=== PATIENT | female | born 1955 | race Caucasian/White ===

== ENCOUNTER 2019-02-04 21:31 | Emergency (ER) | payer OTHER ==
[~2019-02-04] VITALS: Ht 157.5 cm; Wt 99.3 kg
[~2019-02-04 21:31] MED LIST: ACET500 PO; ALBU90OI61 INH; ASPI325 PO; AZAT50 PO; Aspir-Trin325 MG PO; CALCAVITD PO; CHOL10002 PO; DULERA 100 MCG/13 GM INH; DULERA 200 MCG/13 GM INH; FENO160 PO; HYDSUL200 PO; METO50 PO; MULVITMIND PO; PRED10 PO; PRED5 PO; PRO AIR INH; Polytrim Eye Dr10 ML BOTHEYES; SERT25 PO
[2019-02-04 22:51] LABS: Influenza A Positive (NEGATIVE); Influenza B Negative (NEGATIVE)
[2019-02-04] MEDS ORDERED: TIOT18 INH (22:59)
[2019-02-04] MEDS ORDERED: LOMAIRA8 MG PO (22:59)
[2019-02-04 23:15] LABS: Calcium, Ionized (POC) 1.16 mmol/L (1.10-1.46); Chloride (POC) 102 mmol/L (98-108); Creatinine (POC) 0.7 mg/dL (0.6-1.0); Glucose (ISTAT POC) 90 mg/dL (70-99); Hemoglobin (POC) 12.9 g/dL (12.0-16.0); Sodium (POC) 139 mmol/L (135-148); Total CO2 (POC) 25 mmol/L (21-32)
[2019-02-04] MEDS ORDERED: Tamiflu75 MG PO (23:28)
== END 2019-02-04 23:45 | disposition home or self-care (01) ==
LOC: ER 21:31
PROVIDERS: Emergency Medicine; Physician Assistant
DX: J10.1 Influenza due to other identified influenza virus with other respiratory manifestations (principal); I25.2 Old myocardial infarction; M32.9 Systemic lupus erythematosus, unspecified; Z79.899 Other long term (current) drug therapy
CPT/HCPCS: 36415; 80047; 85014; 87804; 99283

== ENCOUNTER 2019-07-18 17:04 | Inpatient (IN) | payer OTHER ==
[~2019-07-18] VITALS: Ht 157.5 cm; Wt 96.6 kg
[~2019-07-18 17:04] MED LIST changes: -CALCAVITD PO; +CALCIUM 600 +1 EA11 PO; -CHOL10002 PO; +LOMAIRA8 MG PO; +METO50ER PO; +MULTI-DAY PLUS1 EAC1 PO; -MULVITMIND PO; +TIOT18 INH; +Tamiflu75 MG PO; +VITAMIN D35000 UNIT PO
[2019-07-18 17:38] LABS: BASOPHILS ABSOLUTE AUTO 0.03 K/mm3 (0.00-0.23); BASOPHILS PERCENT AUTO 0 % (0-2); EOSINOPHILS ABSOLUTE AUTO 0.16 K/mm3 (0.00-0.68); EOSINOPHILS PERCENT AUTO 1 % (0-6); Hematocrit 40.3 % (33.0-51.0); Hemoglobin 12.7 g/dL (11.5-16.0); IMMATURE GRAN ABSOLUTE AUTO 0.04 K/mm3 (0.00-0.10); IMMATURE GRAN PERCENT AUTO 0 % (0-1); LYMPHOCYTES ABSOLUTE AUTO 0.91 K/mm3 (0.84-5.20); LYMPHOCYTES PERCENT AUTO 8 % (21-46); MONOCYTES ABSOLUTE AUTO 0.95 K/mm3 (0.16-1.47); MONOCYTES PERCENT AUTO 8 % (4-13); Mean Corpuscular HGB 28.6 pg (26.0-34.0); Mean Corpuscular HGB Conc 31.5 g/dL (31.5-36.5); Mean Corpuscular Volume 91 fL (80-100); Mean Platelet Volume 9.5 fL (9.1-12.4); NEUTROPHILS ABSOLUTE AUTO 9.76 K/mm3 (1.96-9.15); NEUTROPHILS PERCENT AUTO 82 % (41-73); Platelet Count 333 K/mm3 (150-400); RDW Coefficient Variation 13.3 % (11.7-14.2); RDW Standard Deviation 44.7 fL (35.1-46.3); Red Blood Cell Count 4.44 M/mm3 (3.80-5.20); White Blood Cell Count 11.85 K/mm3 (4.00-11.30)
[2019-07-18 17:49] LABS: Alanine Aminotransfer (ALT/SGP 22 U/L (12-78); Albumin, Blood 3.6 g/dL (3.4-5.0); Alk Phos 50 U/L (50-136); Anion Gap 8 mmol/L (6-16); Aspartate Aminotrans (AST/SGOT 29 U/L (12-37); Bilirubin, Total 0.4 mg/dL (0.1-1.0); Blood Urea Nitrogen 23 mg/dL (8-24); Bun/Creatinine Ratio 37.1 (12.0-20.0); CO2, Blood 23 mmol/L (21-32); Calcium, Blood 8.7 mg/dL (8.5-10.1); Chloride, Blood 107 mmol/L (98-108); Creatinine, Blood 0.62 mg/dL (0.40-1.00); Globulin, Blood 3.7 g/dL (2.2-4.0); Glomerular Filtration Rate >60 (60-); Glucose, Blood 85 mg/dL (70-99); Potassium, Blood 3.7 mmol/L (3.5-5.5); Sodium, Blood 138 mmol/L (136-145); Total Protein, Blood 7.3 g/dL (6.4-8.2)
[2019-07-18] MEDS ORDERED: ALEN70 PO (18:04)
[2019-07-18] MEDS ORDERED: Xopenex Hfa15 GM INH (18:09)
[2019-07-18] MEDS ORDERED: Flonase 0.05% N16 GM (18:10)
[2019-07-18 18:20] LABS: Influenza A Negative (NEGATIVE); Influenza B Negative (NEGATIVE)
[2019-07-18 19:04] LABS: Source, Urine Catheter
[2019-07-18 19:08] LABS: Bilirubin, Urine Neg (Neg); Blood, Urine 3+ (Neg); Glucose Qualitative, Urine Neg (Neg); Ketones, Urine Neg (Neg); Leukocyte Esterase, Urine 3+ (Neg); Nitrite, Urine Pos (Neg); Protein, Urine Neg (Neg); Urobilinogen, Urine NORM (Normal)
[2019-07-18 19:33] LABS: Appearance, Urine Hazy (Clear); Color, Urine Yellow (P-Yellow)
[2019-07-18 19:34] LABS: White Blood Cells, Urine 50-100 /hpf (0-5)
[2019-07-18 19:35] LABS: Bacteria Mod /hpf; Red Blood Cells, Urine 0-2 /hpf (0-2); Squamous Epithelial Cells Few /hpf (Few)
[2019-07-18] MEDS ORDERED: EPIPEN 2-P0.3 MG/0.3 IM (19:44)
[2019-07-18] MEDS ORDERED: Voltaren100 GM TOP (19:45)
[2019-07-18] MEDS ORDERED: ACET325 PO (19:47)
[2019-07-18] MEDS ORDERED: SPIRIVA RESPIMAT4 G1 INH (19:48)
[2019-07-18] MEDS ORDERED: SPIRIVA RESPIMAT4 GM INH (19:48)
[2019-07-19 03:38] LABS: BASOPHILS ABSOLUTE AUTO 0.02 K/mm3 (0.00-0.23); BASOPHILS PERCENT AUTO 0 % (0-2); EOSINOPHILS ABSOLUTE AUTO 0.05 K/mm3 (0.00-0.68); EOSINOPHILS PERCENT AUTO 1 % (0-6); Hematocrit 37.1 % (33.0-51.0); Hemoglobin 11.8 g/dL (11.5-16.0); IMMATURE GRAN ABSOLUTE AUTO 0.05 K/mm3 (0.00-0.10); IMMATURE GRAN PERCENT AUTO 1 % (0-1); LYMPHOCYTES ABSOLUTE AUTO 0.51 K/mm3 (0.84-5.20); LYMPHOCYTES PERCENT AUTO 6 % (21-46); MONOCYTES ABSOLUTE AUTO 0.54 K/mm3 (0.16-1.47); MONOCYTES PERCENT AUTO 6 % (4-13); Mean Corpuscular HGB 28.6 pg (26.0-34.0); Mean Corpuscular HGB Conc 31.8 g/dL (31.5-36.5); Mean Corpuscular Volume 90 fL (80-100); Mean Platelet Volume 9.5 fL (9.1-12.4); NEUTROPHILS ABSOLUTE AUTO 7.61 K/mm3 (1.96-9.15); NEUTROPHILS PERCENT AUTO 87 % (41-73); Platelet Count 292 K/mm3 (150-400); RDW Coefficient Variation 13.4 % (11.7-14.2); RDW Standard Deviation 44.5 fL (35.1-46.3); Red Blood Cell Count 4.13 M/mm3 (3.80-5.20); White Blood Cell Count 8.78 K/mm3 (4.00-11.30)
[2019-07-19 03:58] LABS: Anion Gap 7 mmol/L (6-16); Blood Urea Nitrogen 17 mg/dL (8-24); Bun/Creatinine Ratio 28.1 (12.0-20.0); CO2, Blood 25 mmol/L (21-32); Calcium, Blood 8.6 mg/dL (8.5-10.1); Chloride, Blood 107 mmol/L (98-108); Glomerular Filtration Rate >60 (60-); Glucose, Blood 89 mg/dL (70-99); Potassium, Blood 3.7 mmol/L (3.5-5.5); Sodium, Blood 139 mmol/L (136-145)
--- NOTE | 2019-07-19 04:46 | NUR ---
SHIFT SUMMARY PT DEVELOPED A FEVER AFTER ARRIVING. PT WAS TX WITH APAP PER EMAR. COOLING MEASURES SUCH ICE PACKS AND BLANKET REMOVAL WAS DONE. PT TEMP IS COMING DOWN AND WILL CONTINUE TO MONITOR, PT DID HAVE EPISODE OF N/V WHEN FEVER SPIKED. ZOFRAN WAS GIVEN WITH GOOD RESULT. PT UNABLE TO TOLERATE OUR CPAP, NC @ 2LPM WAS PLACED. PT WILL HAVE HOME CPAP BROUGHT IN. PT CURRENTLY SLEEPING AND BREATHING EASY. CALL LIGHT IN REACH.
--- NOTE | 2019-07-19 18:40 | NUR ---
SUMMARY NO ACUTE CHANGES T/O SHIFT. PT FEBRILE T/O SHIFT. MEDICATED PER ORDERS W/TYLENOL. PT VOIDING WELL. LOST IV SITE. UNABLE TO OBTAIN NEW SITE, MULTIPLE ATTEMPTS MADE FOR POWER GLIDE AND PERIPHERAL SITE UNSUCCESSFULLY. CALL OUT TO ED FOR EJ. ANTIBIOTIC CHANGED TO PO FOR TONIGHT'S DOSE PER DR SANTOS'S TELEPHONE ORDER SO PT DOES NOT MISS DOSE. PT SBA TO RESTROOM. USES FWW. PLEASANT AND COOPERATIVE.
--- NOTE | 2019-07-19 21:10 | NUR ---
UPDATE PATIENT CURRENTLY CONTINUES TO HAVE NO SUCCESSFUL IV ACCESS OBTAINED. DAY SHIFT HOSPITALIST AWARE PER DAY RN REPORT.
[2019-07-20 03:39] LABS: BASOPHILS ABSOLUTE AUTO 0.02 K/mm3 (0.00-0.23); BASOPHILS PERCENT AUTO 0 % (0-2); EOSINOPHILS ABSOLUTE AUTO 0.02 K/mm3 (0.00-0.68); EOSINOPHILS PERCENT AUTO 0 % (0-6); Hematocrit 38.7 % (33.0-51.0); Hemoglobin 12.2 g/dL (11.5-16.0); IMMATURE GRAN ABSOLUTE AUTO 0.07 K/mm3 (0.00-0.10); IMMATURE GRAN PERCENT AUTO 1 % (0-1); LYMPHOCYTES ABSOLUTE AUTO 0.48 K/mm3 (0.84-5.20); LYMPHOCYTES PERCENT AUTO 7 % (21-46); MONOCYTES ABSOLUTE AUTO 0.56 K/mm3 (0.16-1.47); MONOCYTES PERCENT AUTO 9 % (4-13); Mean Corpuscular HGB 28.4 pg (26.0-34.0); Mean Corpuscular HGB Conc 31.5 g/dL (31.5-36.5); Mean Corpuscular Volume 90 fL (80-100); Mean Platelet Volume 9.4 fL (9.1-12.4); NEUTROPHILS PERCENT AUTO 82 % (41-73); Platelet Count 268 K/mm3 (150-400); RDW Coefficient Variation 13.4 % (11.7-14.2); RDW Standard Deviation 44.1 fL (35.1-46.3); White Blood Cell Count 6.45 K/mm3 (4.00-11.30)
[2019-07-20 03:59] LABS: Albumin, Blood 2.9 g/dL (3.4-5.0); Anion Gap 8 mmol/L (6-16); Blood Urea Nitrogen 12 mg/dL (8-24); Bun/Creatinine Ratio 22.1 (12.0-20.0); CO2, Blood 25 mmol/L (21-32); Calcium, Blood 8.7 mg/dL (8.5-10.1); Chloride, Blood 107 mmol/L (98-108); Creatinine, Blood 0.54 mg/dL (0.40-1.00); Glomerular Filtration Rate >60 (60-); Glucose, Blood 96 mg/dL (70-99); Phosphorus, Blood 2.4 mg/dL (2.5-4.9); Potassium, Blood 3.9 mmol/L (3.5-5.5); Sodium, Blood 140 mmol/L (136-145)
--- NOTE | 2019-07-20 07:34 | NUR ---
SHIFT SUMMARY PATIENT PLEASENT AND COOPERATIVE THROUGHOUT THE NIGHT. PATIENT TOOK A WALK BEFORE GOING TO BED. PATIENT CONTINUES TO HAVE NO IV ACCESS, ER WAS NEVER ABLE TO COME ATTEMPT IV ACCESS LAST NIGHT. PATIENT ON 2L O2 VIA N/C. PATIENT USED HER CPAP WHILE ASLEEP, CONTINUOUS BIOX IN PLACE. PATIENT APPEARED TO SLEEP WELL FOR SEVERAL HOURS LAST NIGHT. VITAL SIGNS CHARTED. REPORT GIVEN TO ONCOMING RN.
--- NOTE | 2019-07-20 08:05 | NUR ---
pt laying in bed awake a/ox3, pleasant and cooperative with care, follows commands well, reports kidney pain to right flank, states it woke her up this am, other than that she has her chronic discomfort of knees, slept well, denies sob, lungs are clear a bit dim in bases, resp even and unlabored, reports a nonproductive occ cough, is currently on r/a, hrr, tele in place running sr per montior, see strip, no edema noted, ppp+2, cap refill <3sec, vs stable, afebrile, no iv site, btx4, abd flat soft tender to right upper quad, reports voids and bm wnl, skin c/w/d, some scattered bruising, maew, santos, call light in reach.
--- NOTE | 2019-07-20 13:30 | NUR ---
pt up in room, no complaints or needs. no acute changes, states she feels pretty good. call light in reach.
--- NOTE | 2019-07-20 19:27 | NUR ---
pt had an uneventful day. no acute changes, call light in reach.
--- NOTE | 2019-07-20 19:39 | NUR ---
TAKEN REPORT FROM LELIA ROWELL RN WHO REPORTED THAT PATIENT HAD NO IV AND WAS OK'D BY DOCTOR. NOTED IN NURSING NOTES THAT THE DOCTOR IS AWARE. PATIENT STABLE AND INDEPENDENT IN ROOM. SHE ISS NOT WANTING TO BE POKED YET AGAIN.
--- NOTE | 2019-07-21 04:00 | NUR ---
PATIENT UP FOR A WALK WITH STEAM OVEN OPERATOR. PATIENT ON 2L OF OXYGEN TO WALK AROUND THE UNIT. PATIENT WALKING INDEPENDENTLY. STEAM OVEN OPERATOR ASSISTING WITH OXYGEN TANK ONLY.
[2019-07-21 04:04] LABS: BASOPHILS ABSOLUTE AUTO 0.02 K/mm3 (0.00-0.23); BASOPHILS PERCENT AUTO 0 % (0-2); EOSINOPHILS PERCENT AUTO 4 % (0-6); Hematocrit 37.7 % (33.0-51.0); IMMATURE GRAN ABSOLUTE AUTO 0.06 K/mm3 (0.00-0.10); IMMATURE GRAN PERCENT AUTO 1 % (0-1); LYMPHOCYTES ABSOLUTE AUTO 1.46 K/mm3 (0.84-5.20); LYMPHOCYTES PERCENT AUTO 29 % (21-46); MONOCYTES ABSOLUTE AUTO 0.78 K/mm3 (0.16-1.47); MONOCYTES PERCENT AUTO 16 % (4-13); Mean Corpuscular HGB 27.8 pg (26.0-34.0); Mean Corpuscular HGB Conc 31.8 g/dL (31.5-36.5); Mean Platelet Volume 9.4 fL (9.1-12.4); NEUTROPHILS ABSOLUTE AUTO 2.49 K/mm3 (1.96-9.15); NEUTROPHILS PERCENT AUTO 50 % (41-73); Platelet Count 293 K/mm3 (150-400); RDW Coefficient Variation 13.2 % (11.7-14.2); RDW Standard Deviation 42.5 fL (35.1-46.3); Red Blood Cell Count 4.32 M/mm3 (3.80-5.20); White Blood Cell Count 5.01 K/mm3 (4.00-11.30)
[2019-07-21 04:07] LABS: Mean Corpuscular Volume 87 fL (80-100)
[2019-07-21 04:25] LABS: Albumin, Blood 2.9 g/dL (3.4-5.0); Anion Gap 6 mmol/L (6-16); Blood Urea Nitrogen 19 mg/dL (8-24); Bun/Creatinine Ratio 31.6 (12.0-20.0); CO2, Blood 28 mmol/L (21-32); Calcium, Blood 8.7 mg/dL (8.5-10.1); Chloride, Blood 106 mmol/L (98-108); Glomerular Filtration Rate >60 (60-); Glucose, Blood 98 mg/dL (70-99); Phosphorus, Blood 3.4 mg/dL (2.5-4.9); Potassium, Blood 3.8 mmol/L (3.5-5.5); Sodium, Blood 140 mmol/L (136-145)
--- NOTE | 2019-07-21 05:35 | NUR ---
PATIENT HAS BEEN COMPLETELY INDEPENDENT IN HER ROOM TONIGHT. PATIENT CALLS APPROPRIATLEY. PATIENT ABLE TO GO TO THE BATHROOM WITHOUT OXYGEN BUT NEEDS OXYGEN FOR ACTIVITY. PATIENT SLEPT WITH HOME CPAP. PATIENT DENIES ANY PAIN OR NEEDS THROUGH THE NIGHT. PATIENT DID USE PRN INHALER BEFORE WALKING, STATING THIS IS HER NORMAL PRACTICE AT HOME.
--- NOTE | 2019-07-21 07:45 | NUR ---
RECEIVED REPORT FROM BENTON CERVANTES, ASSUMED CARE, PATIENT IS SITTING AT SIDE OF BED WATCHING TV, AWAKE, ALERT AND ORIENTED, ASKED TO BE CALLED "PORTER", PLEASANT AND COOPERATIVE, INDEPENDENT IN ROOM, ABLE TO USE BATHROOM INDEPENDENTLY, LUNG SOUNDS CLEAR BUT DIMINISHED, BOWEL TONES PRESENT, PATIENT VOIDS IN TOILET, ABLE TO AMBULATE WITHOUT ASSISTANCE, PEDAL PULSES PRESENT, CALL LIGHT IN REACH, WILL CONTINUE TO MONITOR.
--- NOTE | 2019-07-21 09:00 | NUR ---
PATIENT SITTING AT SIDE OF BED EATING BREAKFAST, SWALLOWED ALL PO MEDICATIONS THIS AM WITHOUT ANY PROBLEM, CALL LIGHT IN REACH, WILL CONTINUE TO MONITOR.
--- NOTE | 2019-07-21 12:33 | NUR ---
DR. GALICIA IN TO SEE PATIENT, NEW ORDERS RECEIVED.
[2019-07-21] MEDS ORDERED: LEVO750 PO (14:51)
--- NOTE | 2019-07-21 15:31 | NUR ---
PATIENT DISCHARGED TO HOME ORDERED, THREE STITCHES ON RIGHT UPPER CHEST REMOVED PER DR. GALICIA, PATIENT TOLERATED WELL, DISCHARGE PAPERWORK VERBAL AND WRITTEN GIVEN AND EXPLAINED, PATIENT VERBALIZED UNDERSTANDING, NEW PRESCRIPTIONS HAVE BEEN CALLED TO [facility] IN [place], PATIENT WAS ESCORTED TO ER ENTRANCE VIA WHEELCHAIR WHERE HER FRIEND WAITED TO PROVIDE A RIDE HOME, PATIENT LEFT WITH ALL MEDICATIONS AND PERSONAL BELONGINGS.
== END 2019-07-21 15:38 | disposition home or self-care (01) | DRG 872 ==
LOC: ER 17:04 → PCU 20:32
PROVIDERS: Emergency Medicine; Internal Medicine; Nurse Practitioner Acute Care; ADMIT Family Medicine
DX: A41.51 Sepsis due to Escherichia coli [E. coli] (principal); N39.0 Urinary tract infection, site not specified; M33.20 Polymyositis, organ involvement unspecified; J96.11 Chronic respiratory failure with hypoxia; M32.9 Systemic lupus erythematosus, unspecified; E83.39 Other disorders of phosphorus metabolism; I25.10 Atherosclerotic heart disease of native coronary artery without angina pectoris; G47.33 Obstructive sleep apnea (adult) (pediatric); J84.10 Pulmonary fibrosis, unspecified; Z99.81 Dependence on supplemental oxygen; E78.5 Hyperlipidemia, unspecified; M79.7 Fibromyalgia; M06.9 Rheumatoid arthritis, unspecified; Z88.8 Allergy status to other drugs, medicaments and biological substances; Z79.52 Long term (current) use of systemic steroids; Z79.899 Other long term (current) drug therapy; I25.2 Old myocardial infarction
CPT/HCPCS: 36415; 71046; 80048; 80053; 80069; 81001; 83605; 85025; 87040; 87077; 87086; 87186; 87804; 93005; 93010; 94640; 94660; 94762; 96361; 96365; 96366; 96375; 99285-25; A9270; J1650; J1956; J2405; J2543; J3480; J7030; J7500; J7512

== ENCOUNTER 2020-10-16 09:04 | Day surgery (SDC) | payer OTHER ==
[~2020-10-16] VITALS: Ht 157.5 cm; Wt 95.8 kg
[~2020-10-16 09:04] MED LIST changes: +ACET325 PO; +ALEN70 PO; +CALCIUM CIT 311 EACH PO; +CLARITIN10 M1 PO; +DULERA 200 MCG-13 GM INH; +EPIPEN 2-P0.3 MG/0.1 IM; +EPIPEN 2-P0.3 MG/0.3 IM; +FLUT.05NI; +FOLI1 PO; +Flonase 0.05% N16 GM; +LEVALBUTEROL TA15 G1 INH; +LEVO750 PO; +METO25 PO; +METTREX2.5 PO; +Multiple Vitam1 EAC1 PO; +SPIRIVA RESPIMAT4 G1 INH; +SPIRIVA RESPIMAT4 G3 INH; +SPIRIVA RESPIMAT4 GM INH; +VITAMIN D5000 UNIT PO; +VOLTAREN ARTHRI20 GM TOP; +Voltaren100 GM TOP; +Xopenex Hfa15 GM INH
== END 2020-10-16 11:05 | disposition home or self-care (01) ==
LOC: ORSCSDS 09:04
PROVIDERS: Student in an Organized Health Care Education/Training Program
PROC: 0DBN8ZX Excision of Sigmoid Colon, Via Natural or Artificial Opening Endoscopic, Diagnostic (ICD-10-PCS; principal; 2020-10-16 10:30)
PROC: 0DBK8ZX Excision of Ascending Colon, Via Natural or Artificial Opening Endoscopic, Diagnostic (ICD-10-PCS; principal; 2020-10-16 10:30)
DX: Z12.11 Encounter for screening for malignant neoplasm of colon (principal); D12.2 Benign neoplasm of ascending colon; D12.5 Benign neoplasm of sigmoid colon; K64.8 Other hemorrhoids; K57.30 Diverticulosis of large intestine without perforation or abscess without bleeding; I10 Essential (primary) hypertension; I25.2 Old myocardial infarction; J45.909 Unspecified asthma, uncomplicated; G47.33 Obstructive sleep apnea (adult) (pediatric); E66.01 Morbid (severe) obesity due to excess calories; Z68.38 Body mass index [BMI] 38.0-38.9, adult; Z79.899 Other long term (current) drug therapy; Z99.81 Dependence on supplemental oxygen
CPT/HCPCS: 88305; J2704; J7120

== ENCOUNTER 2021-10-23 07:50 | Day surgery (SDC) | payer OTHER ==
[~2021-10-23] VITALS: Ht 160 cm; Wt 99.9 kg
[2021-10-23] MEDS ORDERED: ASPI81CH (08:41)
== END 2021-10-23 10:30 | disposition home or self-care (01) ==
LOC: ORSCSDS 07:50
PROVIDERS: Student in an Organized Health Care Education/Training Program
PROC: 0DBM8ZX Excision of Descending Colon, Via Natural or Artificial Opening Endoscopic, Diagnostic (ICD-10-PCS; principal; 2021-10-23 09:30)
PROC: 0DBN8ZX Excision of Sigmoid Colon, Via Natural or Artificial Opening Endoscopic, Diagnostic (ICD-10-PCS; principal; 2021-10-23 09:30)
PROC: 0DBK8ZX Excision of Ascending Colon, Via Natural or Artificial Opening Endoscopic, Diagnostic (ICD-10-PCS; principal; 2021-10-23 09:30)
PROC: 0DBL8ZX Excision of Transverse Colon, Via Natural or Artificial Opening Endoscopic, Diagnostic (ICD-10-PCS; principal; 2021-10-23 09:30)
DX: Z86.010 Personal history of colon polyps (principal); D12.2 Benign neoplasm of ascending colon; D12.3 Benign neoplasm of transverse colon; D12.4 Benign neoplasm of descending colon; D12.5 Benign neoplasm of sigmoid colon; K57.30 Diverticulosis of large intestine without perforation or abscess without bleeding; K64.8 Other hemorrhoids; K64.4 Residual hemorrhoidal skin tags; I10 Essential (primary) hypertension; I25.10 Atherosclerotic heart disease of native coronary artery without angina pectoris; J45.909 Unspecified asthma, uncomplicated; E78.5 Hyperlipidemia, unspecified; Z79.899 Other long term (current) drug therapy; E66.01 Morbid (severe) obesity due to excess calories; Z68.39 Body mass index [BMI] 39.0-39.9, adult
CPT/HCPCS: 88305; J2704; J7120

== ENCOUNTER → 2021-11-26 | Outpatient (CLI) | payer OTHER ==
[~2021-11-26] MED LIST changes: +ASPI81CH
== END | disposition home or self-care (01) ==
LOC: LAB SHORT 14:50
DX: L92.8 Other granulomatous disorders of the skin and subcutaneous tissue (principal)
CPT/HCPCS: 88305; 88313

== ENCOUNTER 2023-02-20 07:35 | Emergency (ER) | payer OTHER ==
[~2023-02-20] VITALS: Ht 160 cm; Wt 98.4 kg
[2023-02-20] MEDS ORDERED: Norco 5-325 Ta1 EACH PO (09:08)
== END 2023-02-20 10:13 | disposition home or self-care (01) ==
LOC: ER 07:35
DX: S42.212A Unspecified displaced fracture of surgical neck of left humerus, initial encounter for closed fracture (principal); S42.292A Other displaced fracture of upper end of left humerus, initial encounter for closed fracture; W01.0XXA Fall on same level from slipping, tripping and stumbling without subsequent striking against object, initial encounter; Z88.1 Allergy status to other antibiotic agents; Z88.8 Allergy status to other drugs, medicaments and biological substances; Z79.899 Other long term (current) drug therapy; Z79.82 Long term (current) use of aspirin
CPT/HCPCS: 73030; 73070; 73200; A9270

== ENCOUNTER 2023-02-28 10:32 | Day surgery (SDC) | payer OTHER ==
[2023-02-28] VITALS (15 sets, daily range): BP systolic 97–150; BP diastolic 56–107
[~2023-02-28] VITALS: Ht 157.5 cm; Wt 98.5 kg
[~2023-02-28 10:32] MED LIST changes: -ASPI81CH; +ASPI81CH PO; +BUDESONIDE0.5 MG/2 M NEB; -DULERA 200 MCG-13 GM INH; +DULERA 200 MCG-13 GM NEB; +FORMOTEROL20 MCG/2 M NEB; +GLYC2 NEB; +NIACIN 500 MG500 MG PO; +Norco 5-325 Ta1 EACH PO; +PREMARIN VAG VAG; +RED YEAST RICE PO; -SPIRIVA RESPIMAT4 G3 INH; +SPIRIVA RESPIMAT4 G3 NEB; +VITAMIN K2 PO
[2023-02-28] MEDS ORDERED: EZET10 PO (11:38)
--- NOTE | 2023-02-28 11:40 | NUR ---
MEDICATIONS AND ALLERGIES REVIEWED WITH PT. ALLERGIES REVEIWED WITH DR CONNELLY. OKAY TO GIVE ANCEF PER DR CONNELLY.
--- NOTE | 2023-02-28 11:50 | NUR ---
History, Chart, Medications and Allergies reviewed before start of procedure. Lungs clear T/O to Auscultation. Patient confirms NPO status and agrees with scheduled surgery. Pre-Op teaching done. Pt verbalizes understanding. PT BELONGINGS PLACED UNDERNEATH GURNEY FOR SAFEKEEPING. PT GLASSES TAKEN TO PACU FOR SAFEKEEPING.
--- NOTE | 2023-02-28 18:43 | NUR ---
PT ARRIVED TO UNIT AT APROX 1630 FROM PACU. PT WITH AQUACEL DRESSING L SHOULDER, SLING IN PLACE. PT HAD NERVE BLOCK SO HAS NO SENSATION OR GROSS MOTOR MVT IN LUE. PT DENIES PAIN. TOLERATING REGULAR DIET. HOME INHALER VERIFIED BY PHARMACY AND LOCKED IN DRAWER.
[2023-03-01 02:27] VITALS: BP 115/64
[2023-03-01 07:11] VITALS: BP 109/57
--- NOTE | 2023-03-01 07:59 | NUR ---
THERAPY: PT IN ROOM TO WORK WITH PATIENT. PATIENT DENIES PAIN. WILL DO FULL ASSESSMENT WHEN THERAPY IS DONE WORKING WITH PATIENT.
--- NOTE | 2023-03-01 08:17 | NUR ---
SUMMARY PT WITH EFFECTIVE BLOCK.CIRC CHECKS INTACT.DRESSING D/I
--- NOTE | 2023-03-01 14:25 | NUR ---
DISCHARGE: PT DC TO HOME WITH FRIEND. IV DC'D WNL. PT VERBALIZED UNDERSTANDING OF INSTRUCTIONS, FOLLOW UP, MEDICATIONS AND PROBLEMS TO REPORT. PT LEFT VIA WHEELCHAIR WITH BELONGINGS.
== END 2023-03-01 14:25 | disposition home or self-care (01) ==
LOC: ORSCMMR 10:32 → SURS 16:02 → ORSCMMR 03-01 14:25 → SURS 03-01 14:25
PROVIDERS: Orthopaedic Surgery
PROC: 0PSD04Z Reposition Left Humeral Head with Internal Fixation Device, Open Approach (ICD-10-PCS; principal; 2023-02-28 12:00)
DX: S42.292A Other displaced fracture of upper end of left humerus, initial encounter for closed fracture (principal); S42.252A Displaced fracture of greater tuberosity of left humerus, initial encounter for closed fracture; W01.0XXA Fall on same level from slipping, tripping and stumbling without subsequent striking against object, initial encounter; J84.10 Pulmonary fibrosis, unspecified; J45.909 Unspecified asthma, uncomplicated; Z99.81 Dependence on supplemental oxygen; G47.33 Obstructive sleep apnea (adult) (pediatric); M32.9 Systemic lupus erythematosus, unspecified; M33.20 Polymyositis, organ involvement unspecified; E78.00 Pure hypercholesterolemia, unspecified; E66.01 Morbid (severe) obesity due to excess calories; Z68.39 Body mass index [BMI] 39.0-39.9, adult; Z79.899 Other long term (current) drug therapy; Z79.82 Long term (current) use of aspirin
CPT/HCPCS: 94640; 94664; 94760; 97116; 97161; 97530; A9270; C1713; J0171; J0690; J1100; J1720; J1885; J2250; J2405; J2704; J3010; J7120; J7512

== ENCOUNTER 2024-06-14 11:21 | Day surgery (SDC) | payer OTHER ==
[~2024-06-14] VITALS: Ht 157.5 cm; Wt 82.2 kg
[2024-06-14] VITALS (13 sets, daily range): BP systolic 99–123; BP diastolic 54–86
[~2024-06-14 11:21] MED LIST changes: +Acetaminophen 500 MG Tab PO SCH; +Chlorhexidine Mouth Care 15 ML UDC MT SCH; +Clindamycin 900mg in D5W 50ML 50 ML IV SCH; +EZET10 PO; +LEFL20 PO; +LORA10ER PO; +Lactated Ringer's 1,000 ML IV SCH; +OxyCODONE HCL 10 MG TABCR PO SCH; +Ropivacaine 0.5% HCl/Pf 123.125 MG,EPINEPHrine HCL 0.25 MG,Ketorolac Tromethamine 15 MG... INFIL SCH; +TYLENOL ARTHRITIS PO; +[UNRECOGNIZED DRUG - OTHER] BOTHEYES; +[UNRECOGNIZED DRUG - REMARK] NEB
--- NOTE | 2024-06-14 12:22 | NUR ---
History, Chart, Medications and Allergies reviewed before start of procedure. Pre-Op teaching done. Pt verbalizes understanding. Patient States Post-Procedure ride home has been arranged WITH FRIEND. Ambulatory in Day Surgery WITH STEADY GAIT. BELONGINGS PLACED UNDER GURN IN PT BELONGING BAG. GLASSES AND PARTIAL TO BE REMOVED AND PLACED IN PACU WITH IDENTIFYING FERTILIZER SUPERVISOR EACH. FRIEND AT BEDSIDE. PT DENIES ANY FURTHER NEEDS AT THIS TIME.
[2024-06-14] MEDS ORDERED: FentaNYL Citrate 50 MCG/ML 2 ML Injection ONE (12:55)
[2024-06-14] MEDS ORDERED: Bisacodyl 10 MG Supp PR PRN (13:20)
[2024-06-14] MEDS ORDERED: Loratadine 10 MG Tab PO PRN (13:20)
[2024-06-14] MEDS ORDERED: Promethazine HCl 25 MG Tab PO PRN (13:20)
[2024-06-14] MEDS ORDERED: Metoclopramide HCl 5MG / ML 2ML Vial IV PRN (13:25)
[2024-06-14] MEDS ORDERED: Ondansetron HCl 2 MG / ML 2ML Vial IV PRN (13:25)
[2024-06-14] MEDS ORDERED: Lactated Ringer's 1,000 ML IV SCH (13:25)
[2024-06-14] MEDS ORDERED: Magnesium Hydroxide Conc 10 ML UDC PO PRN (13:25)
[2024-06-14] MEDS ORDERED: OxyCODONE HCL 5 MG TAB PO PRN ×2 (13:25)
[2024-06-14] MEDS ORDERED: HYDROmorphone HCl/Pf 1MG SYR IV PRN (13:30)
[2024-06-14] MEDS ORDERED: DiphenhydrAMINE HCL 25 MG Cap PO PRN (13:30)
[2024-06-14] MEDS ORDERED: Albuterol HFA200 ACT/6.7 GM INH INH PRN (13:40)
--- NOTE | 2024-06-14 13:48 | NUR ---
06/14/[address] SPINAL NERVE BLOCK COMPLETED BY MARGE RAHMAN UPON ENTRY TO OR. PT TOLERATED WELL.
[2024-06-14] MEDS ORDERED: Phenylephrine HCl 100 MCG/ML-NS 10MLSYR (1MG/10ML) ONE (13:53)
--- NOTE | 2024-06-14 15:52 | NUR ---
PT ARRIVED TO UNIT FROM PACU. NUMB FROM HIPS DOWN, UNABLE TO WIGGLE TOES. HRR. LCA W/DIM BASES. 02 SATS >92% ON RA. AQUACEL DRESSING TO L KNEE CDI. POLAR PACK IN PLACE. ORIENTED TO USE OF CALL LIGHT. RESTING IN BED, EATING JELLO.
[2024-06-14] MEDS ORDERED: Acetaminophen 500 MG Tab PO SCH (16:00)
--- NOTE | 2024-06-14 17:18 | NUR ---
SUMMARY NO ACUTE CHANGES SINCE ARRIVING TO UNIT FROM PACU. PT DOES NOT HAVE FULL SENSATIOIN BACK YET BUT IS ABLE TO LIFT FEET OFF OF BED. DENIES PAIN. TOLERTING PO. TXA COMPLETED PER ORDERS. RT SET UP HOME CPAP. CALL LIGHT IN REACH.
[2024-06-14] MEDS ORDERED: Ketorolac Tromethamine 15mg Vial IV SCH (18:00)
[2024-06-14] MEDS ORDERED: CeFAZolin Sodium 2,000 MG in NS 100 ML IV SCH (19:15)
[2024-06-14] MEDS ORDERED: Metoprolol Tartrate 25 MG Tab PO SCH (21:00)
[2024-06-14] MEDS ORDERED: Docusate Sodium 100 MG Cap PO SCH (21:00)
[2024-06-15 04:34] VITALS: BP 115/65
[2024-06-15 04:41] LABS: BASOPHILS ABSOLUTE AUTO 0.04 K/mm3 (0.00-0.23); BASOPHILS PERCENT AUTO 0 % (0-2); EOSINOPHILS ABSOLUTE AUTO 0.26 K/mm3 (0.00-0.68); EOSINOPHILS PERCENT AUTO 3 % (0-6); Hematocrit 36.6 % (33.0-51.0); Hemoglobin 11.5 g/dL (11.5-16.0); IMMATURE GRAN ABSOLUTE AUTO 0.03 K/mm3 (0.00-0.10); IMMATURE GRAN PERCENT AUTO 0 % (0-1); LYMPHOCYTES PERCENT AUTO 20 % (21-46); MONOCYTES ABSOLUTE AUTO 0.86 K/mm3 (0.16-1.47); MONOCYTES PERCENT AUTO 9 % (4-13); Mean Corpuscular HGB 28.6 pg (26.0-34.0); Mean Corpuscular HGB Conc 31.4 g/dL (31.5-36.5); Mean Corpuscular Volume 91 fL (80-100); Mean Platelet Volume 9.9 fL (9.1-12.4); NEUTROPHILS ABSOLUTE AUTO 6.81 K/mm3 (1.96-9.15); NEUTROPHILS PERCENT AUTO 68 % (41-73); Platelet Count 206 K/mm3 (150-400); RDW Coefficient Variation 13.1 % (11.7-14.2); RDW Standard Deviation 43.3 fL (35.1-46.3); Red Blood Cell Count 4.02 M/mm3 (3.80-5.20)
--- NOTE | 2024-06-15 04:50 | NUR ---
SUMMARY- NO ISSUES NOTED. PT HAS BEEN UP AND AMBULATING. PT HAS BEEN VOIDING WELL. PAIN MANAGED WELL. PT HAS BEEN RESTING WITH CPAP ON. PT HAS NO COMPLAINTS. CALL LIGHT IN REACH.
[2024-06-15 05:00] LABS: Bun/Creatinine Ratio 26.8 (12.0-20.0); Creatinine, Blood 0.56 mg/dL (0.40-1.00); Potassium, Blood 3.8 mmol/L (3.5-5.5)
[2024-06-15 07:10] VITALS: BP 117/60
[2024-06-15] MEDS ORDERED: PredniSONE 5 MG Tab PO SCH (09:00)
[2024-06-15] MEDS ORDERED: Niacin 500 MG Tab PO SCH (09:00)
[2024-06-15] MEDS ORDERED: Cholecalciferol 1000 Unit Tablet (=25MCG) PO SCH (09:00)
[2024-06-15] MEDS ORDERED: Aspirin 81 MG Chew PO SCH (09:00)
[2024-06-15 11:01] VITALS: BP 128/69
--- NOTE | 2024-06-15 11:11 | NUR ---
DISCHARGED VSS. CLEARED THERAPY. REVIEWED DC INSTRUCTIONS W/PT; VERBALIZED UNDERSTANDING. PROVIDED AQUACEL DRESSINGS. PT LEFT UNIT IN WC W/POSSESSIONS, AQUACEL DRESSINGS, DC INSTRUCTIONS, AND POLAR PACK IN HAND TO RIDE WAITING OUTSIDE.
== END 2024-06-15 11:11 | disposition home or self-care (01) ==
LOC: ORSCMMR 11:21 → SURS 15:39 → ORD 15:45 → ORSCMMR 06-15 11:11
PROVIDERS: Orthopaedic Surgery
PROC: 8E0Y0CZ Robotic Assisted Procedure of Lower Extremity, Open Approach (ICD-10-PCS; principal; 2024-06-14 13:00)
PROC: 0SRD0JA Replacement of Left Knee Joint with Synthetic Substitute, Uncemented, Open Approach (ICD-10-PCS; principal; 2024-06-14 13:00)
DX: M17.12 Unilateral primary osteoarthritis, left knee (principal); I10 Essential (primary) hypertension; E78.5 Hyperlipidemia, unspecified; I25.10 Atherosclerotic heart disease of native coronary artery without angina pectoris; G47.33 Obstructive sleep apnea (adult) (pediatric); J84.10 Pulmonary fibrosis, unspecified; J44.89 Other specified chronic obstructive pulmonary disease; I25.2 Old myocardial infarction; M32.9 Systemic lupus erythematosus, unspecified; Z79.899 Other long term (current) drug therapy; Z68.34 Body mass index [BMI] 34.0-34.9, adult; Z99.81 Dependence on supplemental oxygen
CPT/HCPCS: 27447; 0055T; 36415; 73560-LT; 80048; 83735; 85025; 94762; 97110; 97116; 97162; 97530; A9270; C1713; C1776; J0171; J0690; J0735; J1885; J2371; J2795; J3010; J7120; J7512

== ENCOUNTER 2024-12-22 07:25 | Day surgery (SDC) | payer OTHER ==
[~2024-12-22] VITALS: Ht 157.5 cm; Wt 80.8 kg
[~2024-12-22 07:25] MED LIST changes: -Acetaminophen 500 MG Tab PO SCH; -Chlorhexidine Mouth Care 15 ML UDC MT SCH; -Clindamycin 900mg in D5W 50ML 50 ML IV SCH; -Lactated Ringer's 1,000 ML IV SCH; -OxyCODONE HCL 10 MG TABCR PO SCH; -Ropivacaine 0.5% HCl/Pf 123.125 MG,EPINEPHrine HCL 0.25 MG,Ketorolac Tromethamine 15 MG... INFIL SCH
[2024-12-22] MEDS ORDERED: Lactated Ringer's 1,000 ML IV ONE ×2 (07:53→08:22)
[2024-12-22] MEDS ORDERED: propofoL 50 ML IV ONE (08:35)
[2024-12-22 09:22] VITALS: BP 127/74
== END 2024-12-22 09:23 | disposition home or self-care (01) ==
LOC: ORSCSDS 07:25
PROVIDERS: Internal Medicine Gastroenterology
PROC: 0DJD8ZZ Inspection of Lower Intestinal Tract, Via Natural or Artificial Opening Endoscopic (ICD-10-PCS; principal; 2024-12-22 09:00)
DX: Z12.11 Encounter for screening for malignant neoplasm of colon (principal); Z86.0101 Personal history of adenomatous and serrated colon polyps; K57.30 Diverticulosis of large intestine without perforation or abscess without bleeding; I25.10 Atherosclerotic heart disease of native coronary artery without angina pectoris; J44.9 Chronic obstructive pulmonary disease, unspecified; J84.10 Pulmonary fibrosis, unspecified; G47.33 Obstructive sleep apnea (adult) (pediatric); Z99.81 Dependence on supplemental oxygen; E66.9 Obesity, unspecified; Z68.32 Body mass index [BMI] 32.0-32.9, adult; Z79.899 Other long term (current) drug therapy
CPT/HCPCS: J2704; J7120

== ENCOUNTER 2025-04-25 07:00 | Day surgery (SDC) | payer OTHER ==
[~2025-04-25] VITALS: Ht 157.5 cm; Wt 82.6 kg
[2025-04-25] VITALS (18 sets, daily range): BP systolic 88–134; BP diastolic 48–75
[2025-04-25] MEDS ORDERED: Chlorhexidine Mouth Care 15 ML UDC MT SCH (07:15)
[2025-04-25] MEDS ORDERED: Acetaminophen 500 MG Tab PO SCH ×3 (07:15→16:00)
[2025-04-25] MEDS ORDERED: Tranexamic Acid 100 ML IV SCH (07:15)
[2025-04-25] MEDS ORDERED: Clindamycin 900mg in D5W 50ML 50 ML IV SCH ×2 (07:15→16:00)
[2025-04-25] MEDS ORDERED: Lactated Ringer's 1,000 ML IV SCH ×2 (07:15→08:45)
[2025-04-25] MEDS ORDERED: OxyCODONE HCL 10 MG TABCR PO SCH (07:15)
[2025-04-25] MEDS ORDERED: Ropivacaine 0.5% HCl/Pf 123.125 MG,EPINEPHrine HCL 0.25 MG,Ketorolac Tromethamine 15 MG... INFIL SCH (07:15)
[2025-04-25] MEDS ORDERED: Ondansetron HCl 2 MG / ML 2ML Vial IV PRN ×2 (08:30→13:35)
[2025-04-25] MEDS ORDERED: Metoclopramide HCl 5MG / ML 2ML Vial IV PRN ×2 (08:30→13:30)
[2025-04-25] MEDS ORDERED: Magnesium Hydroxide Conc 10 ML UDC PO PRN ×2 (08:30→13:35)
[2025-04-25] MEDS ORDERED: DiphenhydrAMINE HCL 25 MG Cap PO PRN ×2 (08:35→13:40)
[2025-04-25] MEDS ORDERED: HYDROmorphone HCl/Pf 1MG SYR IV PRN ×3 (08:35→13:40)
[2025-04-25] MEDS ORDERED: OxyCODONE HCL 5 MG TAB PO PRN ×4 (08:35→13:40)
[2025-04-25] MEDS ORDERED: Bisacodyl 10 MG Supp PR PRN ×2 (08:35→13:35)
[2025-04-25] MEDS ORDERED: Promethazine HCl 25 MG Tab PO PRN ×2 (08:40→13:40)
[2025-04-25] MEDS ORDERED: propofoL 100 ML IV ONE (08:58)
[2025-04-25] MEDS ORDERED: Midazolam HCl 1MG / ML 2ML Vial ONE (08:59)
[2025-04-25] MEDS ORDERED: FentaNYL Citrate 50 MCG/ML 2 ML Injection IV PRN ×2 (09:25→09:30)
[2025-04-25] MEDS ORDERED: Albuterol 2.5 MG/3 ML VIAL INH PRN (09:30)
[2025-04-25] MEDS ORDERED: ePHEDrine Sulfate 50 MG/ML 1ML Injection IV PRN (09:30)
[2025-04-25] MEDS ORDERED: Morphine Sulfate 4 MG/1 ML Injection IV PRN (09:30)
--- NOTE | 2025-04-25 11:40 | NUR ---
ARRIVAL TO SURGICAL UNIT VIA HOSPITAL BED. ALERT, ORIENTED, & PLEASANT. ASSESSMENT CHARTED. ABLE TO WIGGLE TOES BUT NOT ABLE TO MOVE BLE R/T SPINAL. DENIES PAIN OR N/V. SNACKS & DRINKS GIVEN.
[2025-04-25] MEDS ORDERED: Ketorolac Tromethamine 15mg Vial IV SCH (12:00)
[2025-04-25] MEDS ORDERED: ACET500 PO (16:04)
[2025-04-25] MEDS ORDERED: OXYC5 PO (16:05)
[2025-04-25] MEDS ORDERED: ASPI81CH PO (16:05)
--- NOTE | 2025-04-25 16:35 | NUR ---
DISCHARGE PT HAS WORKED w/ THERAPY. PAIN WELL CONTROLLED. EATING, DRINKING, & VOIDING WELL. DRSGS & POLAR PACK SENT w/ PT. ICE PACK MADE FOR RIDE HOME. ESCORTED OUT VIA W/C.
[2025-04-25] MEDS ORDERED: Aspirin 81 MG Chew PO SCH (21:00)
[2025-04-25] MEDS ORDERED: Docusate Sodium 100 MG Cap PO SCH ×2 (21:00)
[2025-04-26] MEDS ORDERED: Aspirin 81 MG Chew PO SCH (09:00)
== END 2025-04-25 16:40 | disposition home or self-care (01) ==
LOC: ORSCMMR 07:00 → ORD 08:30 → SURS 11:32 → ORSCMMR 16:40
PROVIDERS: Orthopaedic Surgery
PROC: 0SRC0JA Replacement of Right Knee Joint with Synthetic Substitute, Uncemented, Open Approach (ICD-10-PCS; principal; 2025-04-25 08:30)
DX: M17.11 Unilateral primary osteoarthritis, right knee (principal); I10 Essential (primary) hypertension; G47.33 Obstructive sleep apnea (adult) (pediatric); I21.9 Acute myocardial infarction, unspecified; J45.909 Unspecified asthma, uncomplicated; E78.5 Hyperlipidemia, unspecified; Z79.899 Other long term (current) drug therapy
CPT/HCPCS: 73560-RT; 97110; 97116; 97162; A9270; C1713; C1776; J0171; J0735; J1885; J2250; J2704; J2795; J7120

== ENCOUNTER 2025-04-27 10:21 | Emergency (ER) | payer OTHER ==
[~2025-04-27] VITALS: Ht 157.5 cm; Wt 81.7 kg
[~2025-04-27 10:21] MED LIST changes: +OXYC5 PO
[2025-04-27 10:28] VITALS: BP 157/75
== END 2025-04-27 11:27 | disposition home or self-care (01) ==
LOC: ER 10:21
DX: L76.32 Postprocedural hematoma of skin and subcutaneous tissue following other procedure (principal); Z79.899 Other long term (current) drug therapy; Z88.1 Allergy status to other antibiotic agents; Z88.2 Allergy status to sulfonamides; Z91.030 Bee allergy status; Z79.82 Long term (current) use of aspirin; I25.2 Old myocardial infarction
CPT/HCPCS: 99282